=== PATIENT | female | born 2000 | race Caucasian/White ===

== ENCOUNTER 2019-01-03 06:14 | Inpatient (IN) | payer MEDICAID, OTHER ==
[~2019-01-03] VITALS: Ht 175.3 cm; Wt 89.1 kg
[2019-01-10 07:41] VITALS: BP 105/79
== END 2019-01-10 12:00 | DRG 740 ==
LOC: ED 07:40 → EDIP 09:29 → 4NOR 11:14 → 2N 01-06 17:57
PROVIDERS: ADMIT Internal Medicine; ATTEND Internal Medicine
PROC: 0LQ60ZZ Repair Left Lower Arm and Wrist Tendon, Open Approach (ICD-10-PCS; principal; 2019-01-03)
PROC: 0KQB0ZZ Repair Left Lower Arm and Wrist Muscle, Open Approach (ICD-10-PCS; 2019-01-03)
DX: F33.2 Major depressive disorder, recurrent severe without psychotic features (principal); F41.9 Anxiety disorder, unspecified; I10 Essential (primary) hypertension; S61.512A Laceration without foreign body of left wrist, initial encounter; X78.1XXA Intentional self-harm by knife, initial encounter; Y93.89 Activity, other specified; Y92.89 Other specified places as the place of occurrence of the external cause; Y99.8 Other external cause status
CPT/HCPCS: 12034; 36415; 80048; 80053; 80061; 80307; 81003; 82040; 83036; 83735; 84439; 84443; 84703; 85025; 90471; 90715; 96365; 96366; 96375; 99285; G0378; J0690; J1100; J2250; J2405; J2704; J3010; J2270